=== PATIENT | male | born 2000 | race Caucasian/White ===

== ENCOUNTER 2020-02-13 10:11 | Emergency (ER) | payer OTHER ==
[2020-02-13] MEDS ORDERED: ONDANSETRON HCL INJ/PF 4 MG/2 ML SDV IV ONE (10:59)
[2020-02-13] MEDS ORDERED: KETOROLAC TROMETHAMINE INJ/PF 30 MG/1 ML SDV IV ONE (10:59)
--- NOTE | 2020-02-13 11:04 | ER Document Report ---
ED General - General Chief Complaint: Abdominal Pain Stated Complaint: NAUSEA Time Seen by Provider: 02/13/20 10:31 - HPI Notes: Chief complaint: Vomiting, headache and fever HPI: Previously healthy 19-year-old male with symptoms as above since last night. 1 loose stool. Minimal abdominal soreness. No ill exposures. No resp iratory symptoms. Specifically denies any known contact with anyone with COVID- 19. No travel outside area. No past surgery. Temperature 101 at home. - Related Data Allergies/Adverse Reactions: No Known Allergies Allergy (Unverified 02/13/20 10:46) Home Medications: zyrtec, prozaac Past Medical History - General Information source: Patient, [facility] Records - Social History Smoking Status: Never Smoker Chew tobacco use (# tins/day): No Frequency of alcohol use: None Drug Abuse: None Lives with: Family Family History: Reviewed & Not Pertinent Patient has homicidal ideation: No Psychiatric Medical History: Reports: Hx Depression Review of Systems - Review of Systems Notes: Constitutional: As per HPI. HENT: Negative for sore throat. Eyes: Negative for visual changes. Cardiovascular: Negative for chest pain. Respiratory: Negative for shortness of breath. Gastrointestinal: As per HPI. Genitourinary: Negative for dysuria. Musculoskeletal: Negative for back pain. Skin: Negative for rash. Neurological: Dull headache. No focal weakness or numbness. 10 point ROS negative except as marked above and in HPI. Physical Exam - Vital signs Vitals: Temp Pulse Resp BP Pulse Ox 100.1 F 118 H 18 131/55 H 98 02/13/20 10:36 02/13/20 10:36 02/13/20 10:36 02/13/20 10:36 02/13/20 10:36 - Notes Notes: Remote Exam Using Telemedicine System for COVID 19 risk mitigation Vital signs: Pulse rate 118. Temperature 101. Respirations 18. BP 131/55. O2 saturation 100% on room air. GENERAL: Well-developed well-nourished appearing in no acute distress. SKIN: no rashes. HEAD: Normocephalic atraumatic. EYES: PERRL. EOMI. Conjunctivae and sclerae clear. NOSE: CLEAR. MOUTH: Moist mucosa. Good dentition. No stridor or edema. No drooling. NECK: Full ROM. No visible masses or thyromegaly. No JVD. BACK: Symmetrical. CHEST: Respirations unlabored. Expands symmetrical. ABDOMEN: Non-distended. Nontender when I have the patient push in all 4 quadrants. GENITALIA: Deferred. EXTREMITIES: No edema. NEUROLOGICAL: GCS 15. Alert and oriented x3. Normal gait. Fluent speech. Cranial nerves II through XII intact. Motor and cerebellar normal. PSYCHIATRIC: Appropriate affect. Course - Re-evaluation Re-evalutation: 02/13/20 14:20 Evaluation consistent with a nonsurgical abdomen. Labs consistent with dehydration. No elevation of white count. Low-grade fever here. Patient feels much better after getting IV Toradol and IV Zofran along with 2 L normal saline. He is tolerating oral fluids without difficulty. Appears stable for discharge patient is comfortable with this. - Vital Signs Vital signs: Temp Pulse Resp BP Pulse Ox 99.2 F 95 H 16 106/33 L 97 02/13/20 13:00 02/13/20 13:00 02/13/20 13:00 02/13/20 13:00 02/13/20 13:00 - Laboratory Result Diagrams: 02/13/20 10:40 02/13/20 10:40 Laboratory results interpreted by me: 02/13/20 02/13/20 02/13/20 10:40 10:40 11:18 Seg Neuts % (Manual) 88 H Band Neutrophils % 1 L Lymphocytes % (Manual) 6 L Sodium 134.8 L Glucose 115 H Alkaline Phosphatase 53 L Urine Ketones 20 H Discharge - Discharge Clinical Impression: Dehydration, Acute viral gastroenteritis Condition: Stable Disposition: HOME, SELF-CARE Additional Instructions: Gastroenteritis You most likely have gastroenteritis. This is an irritation of the stomach and intestinal tract. It's usually caused by a virus, but can also be caused by bacteria, toxins that cause food poisoning, or excessive alcohol intake. S ymptoms may include fever, painful abdominal cramps, nausea, vomiting, and diarrhea. Start with small amounts (two to six ounces) of clear liquids (soft drinks, herb teas, broth, etc). Try to take fluids frequently even if you are vomiting, to prevent dehydration. When liquids are being consumed successfully, advance to small amounts of bland food (mashed potato, toast) for 6 - 12 hours. Gastroenteritis rarely requires medication. It goes away by itself. Use good handwashing so you don't spread germs. Wash underwear in very hot water. If symptoms are severe, talk to the doctor. Call your physician if blood appears in your vomitus or stool, if vomiting lasts longer than 24 hours, if the abdominal pain worsens or becomes localized to one area, or if you develop high fever. Tylenol as needed Increase oral fluids Return here or see your primary care doctor if unimproved in 24 hours. Prescriptions: Ondansetron [Zofran Odt 4 mg Tablet] 1 - 2 tab PO Q4H PRN #15 tab.rapdis PRN Reason: For Nausea/Vomiting
[2020-02-13] MEDS: NORMAL SALINE 1000 ML 1,000 ML IV PRN ×2 (11:15→11:56)
[2020-02-13 11:40] LABS: APPEARANCE,URINE CLEAR; BILIRUBIN,URINE NEGATIVE (NEGATIVE); COLOR,URINE YELLOW; GLUCOSE, URINE NEGATIVE (NEGATIVE); KETONES,URINE 20 mg/dL (NEGATIVE); PROTEIN,URINE NEGATIVE (NEGATIVE); UROBILINOGEN,URINE NEGATIVE mg/dL (<2.0)
[2020-02-13 11:58] LABS: ALBUMIN 4.4 g/dL (3.7-5.6); ALKALINE PHOSPHATASE 53 U/L (65-260); ANION GAP 9 (5-19); ASPARTATE AMINO TRANSFERASE 35 U/L (10-45); BILIRUBIN,DIRECT 0.1 mg/dL (0.0-0.4); BILIRUBIN,TOTAL 1.2 mg/dL (0.2-1.3); BLOOD UREA NITROGEN 9 mg/dL (7-20); CALCIUM 8.9 mg/dL (8.4-10.2); CARBON DIOXIDE 25 mmol/L (22-30); CHLORIDE 101 mmol/L (98-107); GLUCOSE 115 mg/dL (75-110); POTASSIUM 4.1 mmol/L (3.6-5.0)
[2020-02-13 12:07] LABS: HEMATOCRIT 41.5 % (37.9-51.0); HEMOGLOBIN 14.8 g/dL (13.5-17.0); MEAN CORPUSCULAR HEMOGLOBIN 31.2 pg (27.0-33.4); MEAN CORPUSCULAR HGB CONC 35.6 g/dL (32.0-36.0); MEAN CORPUSCULAR VOLUME 87 fl (80-97); PLATELET COUNT 172 10^3/uL (150-450); RED BLOOD COUNT 4.74 10^6/uL (4.35-5.55); WHITE BLOOD COUNT 8.8 10^3/uL (4.0-10.5)
[2020-02-13 12:35] LABS: ABSOLUTE LYMPHOCYTES# (MANUAL) 0.5 10^3/uL (0.5-4.7); ABSOLUTE MONOCYTES # (MANUAL) 0.4 10^3/uL (0.1-1.4); BAND NEUTROPHILS % (MANUAL) 1 % (3-5); BASOPHILS % (MANUAL) 0 % (0-2); EOSINOPHILS % (MANUAL) 0 % (0-6); LYMPHOCYTES % (MANUAL) 6 % (13-45); MONOCYTES % (MANUAL) 5 % (3-13); PLATELET COMMENT ADEQUATE; RBC MORPHOLOGY COMMENT NORMO-CYTIC/CHROMIC; SEGMENTED NEUTROPHILS % (MAN) 88 % (42-78); TOTAL CELLS COUNTED 100
[2020-02-13 14:59] VITALS: BP 108/41
== END 2020-02-13 14:59 | disposition home or self-care (01) ==
LOC: ER 10:11
DX: A08.4 Viral intestinal infection, unspecified (principal); E86.0 Dehydration; R10.9 Unspecified abdominal pain; R11.2 Nausea with vomiting, unspecified; R51 Headache; R50.9 Fever, unspecified; R19.7 Diarrhea, unspecified
CPT/HCPCS: 99284; 96361; 96374; 96375; 36415; 85025; 80053; 81001; J1885; J2405; J7030